=== PATIENT | female | born 1980 | race Caucasian/White ===

== ENCOUNTER 2021-09-15 14:55 | Emergency (ER) | payer OTHER ==
[~2021-09-15] VITALS: Ht 165.1 cm; Wt 77.2 kg
[2021-09-15] MEDS ORDERED: TRAMADOL HYDROC50 M1 PO (15:07)
[2021-09-15] MEDS ORDERED: MEDDOSEPAK PO (15:08)
[2021-09-15] MEDS ORDERED: ORPHENADRINE100 MG PO (15:08)
[2021-09-15 15:22] VITALS: BP 118/70
[2021-09-15] MEDS ORDERED: TRAZODONE50 MG PO (15:22)
[2021-09-15 15:30] VITALS: BP 113/66
[2021-09-15 16:30] VITALS: BP 105/72
[2021-09-15 16:32] VITALS: BP 112/64
[2021-09-15 17:01] VITALS: BP 104/53
[2021-09-15] MEDS ORDERED: HYDROCO/APAP1 T10 PO (17:21)
[2021-09-15 17:30] VITALS: BP 119/73
== END 2021-09-15 17:26 | disposition home or self-care (01) ==
LOC: ED 14:55
DX: M51.27 Other intervertebral disc displacement, lumbosacral region (principal); F41.9 Anxiety disorder, unspecified

== ENCOUNTER 2022-04-16 06:56 | Day surgery (SDC) | payer OTHER ==
[~2022-04-16] VITALS: Ht 165.1 cm; Wt 74.8 kg
[~2022-04-16 06:56] MED LIST: HYDROCO/APAP1 T10 PO; MEDDOSEPAK PO; ORPHENADRINE100 MG PO; TRAMADOL HYDROC50 M1 PO; TRAZODONE50 MG PO
[2022-04-16] MEDS ORDERED: METHOCARBAMOL500 MG PO (07:32)
[2022-04-16] MEDS ORDERED: GABAPENTIN100 MG PO (07:33)
[2022-04-16] MEDS ORDERED: HAIR/SKIN/NAILS1 CAP PO (07:34)
[2022-04-16] MEDS ORDERED: PRENATA3 PO (07:34)
[2022-04-16] MEDS ORDERED: LYRICA25 MG PO (07:35)
[2022-04-16] MEDS ORDERED: DEPO-PROVER150 MG/ML IM (07:40)
[2022-04-16 09:55] VITALS: BP 118/75
== END 2022-04-16 09:27 | disposition home or self-care (01) ==
LOC: ORM 06:56
PROVIDERS: ATTEND Physical Medicine & Rehabilitation Pain Medicine
DX: M54.16 Radiculopathy, lumbar region (principal)
CPT/HCPCS: J1100; Q9967

== ENCOUNTER 2022-04-20 08:12 | Emergency (ER) | payer OTHER ==
[2022-04-20] VITALS (8 sets, daily range): BP systolic 106–124; BP diastolic 53–74
[~2022-04-20] VITALS: Ht 165.1 cm; Wt 72.7 kg
[~2022-04-20 08:12] MED LIST changes: +DEPO-PROVER150 MG/ML IM; +GABAPENTIN100 MG PO; +HAIR/SKIN/NAILS1 CAP PO; +LYRICA25 MG PO; +METHOCARBAMOL500 MG PO; +PRENATA3 PO
[2022-04-20] MEDS ORDERED: HYDROCO/APAP1 TA9 PO (10:15)
[2022-04-20] MEDS ORDERED: TORADOL PO (10:15)
[2022-04-20] MEDS ORDERED: DECADRON4 MG PO (10:15)
== END 2022-04-20 10:40 | disposition home or self-care (01) ==
LOC: ED 08:12
DX: M51.16 Intervertebral disc disorders with radiculopathy, lumbar region (principal); F41.9 Anxiety disorder, unspecified